=== PATIENT | female | born 1965 | race Caucasian/White ===

== ENCOUNTER 2018-01-23 14:25 | Inpatient (IN) | payer OTHER ==
--- NOTE | 2018-01-23 15:04 | PDOC ---
Rapid Medical Evaluation Chief Complaint: Pain, Acute Medical Evaluation: Allergies Allergy/AdvReac Type Severity Reaction Status Date / Time No Known Allergies Allergy Verified 01/23/18 14:53 Vital Signs Temp Pulse Resp BP Pulse Ox 98.6 F 106 H 19 134/73 100 01/23/18 14:53 01/23/18 14:53 01/23/18 14:53 01/23/18 14:53 01/23/18 14:53 01/23/18 14:59 Pt presents with RUQ pain since Monday. States that the pain radiates to the back. States that the pain is made worse by eating. Pt denies fevers, chills, constipation, diarrhea, vomiting Exam: (+) murphys sign. Abdomen soft Orders: Labs, Urine, US Pt to proceed to the ED for further evaluation Discharge Disposition - Diagnosis Abdominal pain - Referrals - Patient Instructions - Post Discharge Activity
[2018-01-23 15:40] LABS: BASO % 0.8 % (0-2.0); EOS % 7.3 % (0-4.5); HEMATOCRIT 37.8 % (32.4-45.2); LYMPH % 32.4 % (8-40); MCH 32.8 pg (25.7-33.7); MCHC 34.4 g/dl (32.0-36.0); MEAN CELL VOLUME 95.4 fl (80-96); MEAN PLT VOLUME 7.8 fl (7.5-11.1); MONO % 5.5 % (3.8-10.2); PLATELET COUNT 250 K/MM3 (134-434); RBC 3.97 M/mm3 (3.60-5.2); RDW 12.2 % (11.6-15.6); WHITE BLOOD COUNT 6.7 K/mm3 (4.0-10.0)
[2018-01-23 15:55] LABS: INR 1.15 (0.83-1.09)
[2018-01-23 16:11] LABS: ALK PHOS 71 U/L (45-117); ANION GAP 6 (8-16); BILIRUBIN,TOTAL 0.3 mg/dL (0.2-1.0); BLOOD UREA NITROGEN 13 mg/dL (7-18); CHLORIDE 107 mmol/L (98-107); CO2 28 mmol/L (21-32); GLUCOSE,RANDOM 103 mg/dL (74-106); POTASSIUM 3.8 mmol/L (3.5-5.1); SGOT/AST 44 U/L (15-37); SGPT/ALT 89 U/L (12-78); SODIUM 141 mmol/L (136-145); TOT PROT 7.7 g/dl (6.4-8.2)
[2018-01-23 16:12] LABS: LIPASE 150 U/L (73-393)
[2018-01-23 16:26] LABS: URINE APPEARANCE CLEAR; URINE BILIRUBIN NEGATIVE (<2.0 mg/dL); URINE COLOR STRAW; URINE GLUCOSE (UA) NEGATIVE (NEGATIVE); URINE KETONE NEGATIVE (NEGATIVE); URINE NITRITE NEGATIVE (NEGATIVE); URINE PROTEIN NEGATIVE (NEGATIVE); URINE UROBILINOGEN NEGATIVE mg/dL (0.2-1.0)
[2018-01-23 16:27] LABS: URINE LEUK ESTERASE 1+ (NEGATIVE)
--- NOTE | 2018-01-23 16:27 | PDOC ---
History of Present Illness - General Chief Complaint: Pain, Acute Stated Complaint: PAIN/ RT SIDE, HEAD Time Seen by Provider: 01/23/18 15:04 - History of Present Illness Initial Comments: This is a 52 YOF with 5-year h/o episodic RUQ pain, who p/w RUQ abdominal pain radiating straight back to her right back for the past 2-3 days, worse with eating. She had initial vomiting at the onset, but since the first day has been nauseated but without vomiting. She additionally notes mild chills. She denies fever, diarrhea, constipation, black/bloody stool, chest pain, SOB, palpitations , dysuria, vaginal bleeding/discharge, recent falls/injuries, dizziness, lightheadedness, LOC, or other symptoms. This pain feels the same as her prior RUQ pain episodes. She has been seen medically for this pain in the past, and has had labs, imaging, upper endoscopy, showing no evidence of gallstones or biliary pathology. Past History - Past Medical History Allergies/Adverse Reactions: Allergies Allergy/AdvReac Type Severity Reaction Status Date / Time No Known Allergies Allergy Verified 01/23/18 14:53 COPD: No Other medical history: DENIES. - Suicide/Smoking/Psychosocial Hx Smoking Status: No Smoking History: Never smoked Number of Cigarettes Smoked Daily: 0 Review of Systems - Review of Systems Able to Perform ROS?: Yes Constitutional: No: Chills, Fever, Unexplained wgt Loss HEENTM: No: Nose Congestion, Throat Pain Respiratory: No: Cough, Shortness of Breath Cardiac (ROS): No: Chest Pain, Palpitations ABD/GI: Yes: Other (abdominal pain). No: Constipated, Diarrhea, Nausea, Vomiting : No: Burning, Dysuria Musculoskeletal: No: Back Pain, Neck Pain Integumentary: No: Bruising, Rash Neurological: No: Headache, Numbness, Tingling, Weakness, Dizziness Endocrine: No: Unexplained Weight Gain, Unexplained Weight Loss *Physical Exam - Vital Signs Last Vital Signs Temp Pulse Resp BP Pulse Ox 98.6 F 106 H 19 134/73 100 01/23/18 14:53 01/23/18 14:53 01/23/18 14:53 01/23/18 14:53 01/23/18 14:53 - Physical Exam General Appearance: Yes: Nourished. No: Apparent Distress HEENT: positive: EOMI, Normal Voice, Hearing Grossly Normal. negative: Scleral Icterus (R), Scleral Icterus (L), Nasal Congestion Neck: positive: Trachea midline, Supple. negative: Tender, Rigid Respiratory/Chest: positive: Lungs Clear, Normal Breath Sounds. negative: Respiratory Distress, Crackles, Rhonchi, Stridor, Wheezing Cardiovascular: positive: Regular Rhythm, Regular Rate. negative: Murmur Gastrointestinal/Abdominal: positive: Normal Bowel Sounds, Soft. negative: Tender, Organomegaly, Pulsatile Mass, Guarding Musculoskeletal: positive: Normal Inspection. negative: Decreased Range of Motion, Vertebral Tenderness Extremity: positive: Normal Capillary Refill, Normal Inspection, Normal Range of Motion. negative: Tender, Cyanosis Integumentary: positive: Normal Color, Dry, Warm. negative: Erythema, Rash, Bruising Neurologic: positive: hand scraper II-XII NML intact, Fully Oriented, Alert, Normal Mood/ Affect, Normal Response, Motor Strength 5/5 ED Treatment Course - LABORATORY CBC & Chemistry Diagram: 01/23/18 15:35 01/23/18 15:35 - ADDITIONAL ORDERS Additional order review: Laboratory Results 01/23/18 01/23/18 15:35 15:35 PT with INR 13.00 INR 1.15 Sodium 141 Potassium 3.8 Chloride 107 Carbon Dioxide 28 Anion Gap 6 L BUN 13 Creatinine 1.0 Creat Clearance w eGFR 58.22 Random Glucose 103 Calcium 9.0 Total Bilirubin 0.3 AST 44 H ALT 89 H Alkaline Phosphatase 71 Total Protein 7.7 Albumin 4.0 01/23/18 15:35 RBC 3.97 MCV 95.4 MCHC 34.4 RDW 12.2 MPV 7.8 Neutrophils % 54.0 Lymphocytes % 32.4 Monocytes % 5.5 Eosinophils % 7.3 H D Basophils % 0.8 Medical Decision Making - Medical Decision Making Adult female Pt p/w RUQ abdominal pain. Initial Vital Signs Temp Pulse Resp BP Pulse Ox 98.6 F 106 H 19 134/73 100 01/23/18 14:53 01/23/18 14:53 01/23/18 14:53 01/23/18 14:53 01/23/18 14:53 Exam: As noted in Physical Exam section. DDX IBNLT: cholecystitis (calculous vs. acalculous), choledocholithiasis, cholangitis, pancreatitis, appendicitis, gastritis, PUD, colitis, diverticulitis wwo abscess or perforation, AAA/AD, ACS, renal colic, obstructive uropathy, UTI/pyelonephritis, hernia, SBO, mesenteric/bowel ischemia , bowel perforation, malignancy, ovarian torsion, ovarian cyst, ectopic , PID, TOA, cervicitis, endometritis, salpingitis, oophoritis, Jakob- Kalpesh-Dinesh syndrome, primary dysmenorrhea, endometriosis, fibroids, constipation, gas, musculoskeletal, etc. W/U ordered: CBCD CMP Lipase Troponin CK CKMB Coags UA UCx EKG CXR RUQ US TX ordered: [facility] EKG: Reviewed; results as noted in ECG Review section. CXR: US: Laboratory Tests 01/23/18 01/23/18 01/23/18 15:35 15:35 15:35 WBC 6.7 RBC 3.97 Hgb 13.0 Hct 37.8 MCV 95.4 MCH 32.8 MCHC 34.4 RDW 12.2 Plt Count 250 MPV 7.8 Absolute Neuts (auto) 3.6 Neutrophils % 54.0 Lymphocytes % 32.4 Monocytes % 5.5 Eosinophils % 7.3 H D Basophils % 0.8 Nucleated RBC % 0 PT with INR 13.00 INR 1.15 Sodium 141 Potassium 3.8 Chloride 107 Carbon Dioxide 28 Anion Gap 6 L BUN 13 Creatinine 1.0 Creat Clearance w eGFR 58.22 Random Glucose 103 Calcium 9.0 Total Bilirubin 0.3 AST 44 H ALT 89 H Alkaline Phosphatase 71 Creatine Kinase Troponin I Total Protein 7.7 Albumin 4.0 Lipase Urine Color Urine Appearance Urine pH Ur Specific [place] Urine Protein Urine Glucose (UA) Urine Ketones Urine Blood Urine Nitrite Urine Bilirubin Urine Urobilinogen Ur Leukocyte Esterase Urine WBC (Auto) Urine RBC (Auto) Ur Epithelial Cells 01/23/18 01/23/18 15:35 15:46 WBC RBC Hgb Hct MCV MCH MCHC RDW Plt Count MPV Absolute Neuts (auto) Neutrophils % Lymphocytes % Monocytes % Eosinophils % Basophils % Nucleated RBC % PT with INR INR Sodium Potassium Chloride Carbon Dioxide Anion Gap BUN Creatinine Creat Clearance w eGFR Random Glucose Calcium Total Bilirubin AST ALT Alkaline Phosphatase Creatine Kinase 62 Troponin I < 0.02 Total Protein Albumin Lipase 150 Urine Color Straw Urine Appearance Clear Urine pH 7.0 Ur Specific [place] 1.014 Urine Protein Negative Urine Glucose (UA) Negative Urine Ketones Negative Urine Blood Negative Urine Nitrite Negative Urine Bilirubin Negative Urine Urobilinogen Negative Ur Leukocyte Esterase 1+ H Urine WBC (Auto) 8 Urine RBC (Auto) 1 Ur Epithelial Cells Rare Reassessment: ADMIT The Pts symptoms persist despite ED treatments. The Pt is unsafe for discharge at this time. They require further hospital observation, workup, and treatment. Microblog sent to [facility] for admission. Spoke with admitting team car sales representative, in agreement Pt to be admitted to Dr. Silveira. Decision to Admit order placed to admitting team covering attending Dr. Silveira, Med/Surg IP. Consult orders placed to Dr. Culp for MRCP and Dr. Bass for surgical consultation. *DC/Admit/Observation/Transfer Diagnosis at time of Disposition: Abdominal pain Qualifiers: Abdominal location: right upper quadrant Qualified Code(s): R10.11 - Right upper quadrant pain Nausea and vomiting Qualifiers: Vomiting type: unspecified Vomiting Intractability: non-intractable Qualified Code(s): R11.2 - Nausea with vomiting, unspecified - Discharge Dispostion Condition at time of disposition: Guarded Decision to Admit order: Yes - Referrals - Patient Instructions Additional Instructions: You were seen in the ER for abdominal pain. We did an exam, labs, an ultrasound , and an electrocardiogram. After our assessment, we do not believe you are having a medical emergency at this time, and we believe you are safe to go home. Please follow up with your regular PCP in 1-3 days. Call their clinic, tell them you were seen in the ER, and tell them you need a follow-up. If you have any new or worsening symptoms, please come back to the ER at any time (24 hours a day). If you are having severe or life threatening symptoms, or symptoms that make it unsafe to drive or have someone drive you, please call 911. - Post Discharge Activity
[2018-01-23 16:40] LABS: EPI CELLS RARE /HPF (FEW)
--- NOTE | 2018-01-23 18:08 | PDOC ---
Attending Attestation - Resident Resident Name: Clare Sun - ED Attending Attestation I have performed the following: I have examined & evaluated the patient, The case was reviewed & discussed with the resident, I agree w/resident's findings & plan, Exceptions are as noted - HPI HPI: 01/23/18 18:02 52 year old female with PMH of chronic abdominal pain since last year presents with RUQ pain x 2 days. The patient reported that she developed a constant RUQ pain worsened with eating. She vomited once the first day but only had nausea since then. Denies fevers, chills, diarrhea. Reports worse appetite. The patient reported she has had this pain evaluated by her PMD, Dr. Erwin with RUQ ultrasound, CT scan of abdomen of pelvis, and endoscopy and colonoscopy , which was reportedly negative. Pt continues to have persistent RUQ pain so came into ED. - Physicial Exam PE: 01/23/18 18:56 GENERAL: Awake, alert, and fully oriented, in no acute distress HEAD: No signs of trauma EYES: EOMI, sclera anicteric, conjunctiva clear ENT: Auricles normal inspection, hearing grossly normal, nares patent,Moist mucosa NECK: Normal ROM, supple LUNGS: Breath sounds equal, clear to auscultation bilaterally. No wheezes, and no crackles HEART: Regular rate and rhythm, normal S1 and S2, no murmurs, rubs or gallops ABDOMEN: Soft, RUQ pain. No guarding, no rebound. No masses EXTREMITIES: Normal range of motion, no edema. No clubbing or cyanosis. No cords, erythema, or tenderness NEUROLOGICAL: Cranial nerves II through XII grossly intact. Normal speech, normal gait SKIN: Warm, Dry, normal turgor, no rashes or lesions noted. - Medical Decision Making 01/23/18 18:57 Vital Signs Temp Pulse Resp BP Pulse Ox 98.6 F 106 H 19 134/73 100 01/23/18 14:53 01/23/18 14:53 01/23/18 14:53 01/23/18 14:53 01/23/18 14:53 RUQ pain. Pt was evaluated with RUQ ultrasound. Demonstrates borderline thickened gallbladder wall but no gallstones. Also elevated CBD. Findings will likely require an MRCP and further evaluation. Surgery consult GI consult Admit
--- NOTE | 2018-01-23 18:23 | HP ---
Admitting History and Physical - Admission Chief Complaint: abdominal pain History of Present Illness: This is a 52 year old female with no pmhx who presented to the ED after RUQ pain since Monday. On Monday, pt had nausea and vomiting. Since then pain has worsened and nausea continued. She did have a colonoscopy/EGD and cat scan a year ago which was neg. Currently, denies chest pain, sob, sales, dizziness, lightheadedness. History Source: Patient Limitations to Obtaining History: No Limitations - Smoking History Smoking history: Never smoked Aproximately how many cigarettes per day: 0 - Alcohol/Substance Use Hx Alcohol Use: No History of Substance Use: reports: None - Social History ADL: Independent Home Medications - Allergies Allergies/Adverse Reactions: Allergies Allergy/AdvReac Type Severity Reaction Status Date / Time No Known Allergies Allergy Verified 01/23/18 14:53 - Home Medications Home Medications: Ambulatory Orders NK [No Known Home Medication] 01/23/18 Review of Systems - Review of Systems Constitutional: reports: No Symptoms Eyes: reports: No Symptoms HENT: reports: No Symptoms Neck: reports: No Symptoms Cardiovascular: reports: No Symptoms Respiratory: reports: No Symptoms Gastrointestinal: reports: Abdominal Pain, Nausea, Vomiting Genitourinary: reports: No Symptoms Musculoskeletal: reports: No Symptoms Integumentary: reports: No Symptoms Neurological: reports: No Symptoms Endocrine: reports: No Symptoms Hematology/Lymphatic: reports: No Symptoms Psychiatric: reports: No Symptoms Physical Examination Vital Signs: Vital Signs Temperature 98.6 F 01/23/18 14:53 Pulse Rate 106 H 01/23/18 14:53 Respiratory Rate 19 01/23/18 14:53 Blood Pressure 134/73 01/23/18 14:53 O2 Sat by Pulse Oximetry (%) 100 01/23/18 14:53 Constitutional: Yes: Well Nourished Eyes: Yes: Conjunctiva Clear HENT: Yes: Atraumatic Neck: Yes: Supple Cardiovascular: Yes: Regular Rate and Rhythm, S1, S2 Respiratory: Yes: Regular, CTA Bilaterally Gastrointestinal: Yes: Normal Bowel Sounds, Tenderness (RUQ tenderness referring to back to palpation) Renal/: Yes: WNL Musculoskeletal: Yes: WNL Extremities: Yes: WNL Edema: No Peripheral Pulses WNL: Yes Integumentary: Yes: WNL Neurological: Yes: Alert, Oriented, Cran Nerves II-XII Intact Labs: CBC, BMP 01/23/18 15:35 01/23/18 15:35 Imaging - Results Cat Scan: Report Reviewed (no definite cholelithiasis seen, GB mildly distended w borderline wall thickness ?acute leslie 0.3 cm GB polyp, common bile duct diameter slightly prominent, measure 0.7cm with apparent mild increase in diameter.) Assessment/Plan Assessment: 52 year old female admitted with RUQ pain Plan: 1. RUQ pain - r/o choledocohlithiaisis d/t biliary sludge - Monitor for acute cholecystitis, pancreatitis - Monitor LFTs - Check lipid panel - MRI/MRCP - NPO - Cont IVF - GI, Surgical consult 2. DVT - Heparin sq Visit type - Emergency Visit Emergency Visit: Yes ED Registration Date: 01/23/18 Care time: The patient presented to the Emergency Department on the above date and was hospitalized for further evaluation of their emergent condition. - New Patient This patient is new to me today: Yes Date on this admission: 01/24/18 - Critical Care Critical Care patient: No Hospitalist Screening - Colonoscopy Questionnaire Colonoscopy Questionnaire: Colonoscopy Questionnaire - Patient: 50 - 75 years old and never had a screening colonoscopy: Unknown History of colon or rectal polyps, or CA: Unknown History of IBD, Crohn's disease or UC: Unknown History of abdominal radiation therapy as a child: Unknown - Relative: 1 with colon or rectal CA, or polyps at age 60 or younger: Unknown Colon or rectal CA diagnosed at age 45 or younger: Unknown Multiple relatives with colon or rectal CA: Unknown - Outcome: Screening Result: Negative Screen
--- NOTE | 2018-01-23 18:40 | CONSULT ---
Consult Consult Specialty:: general surgery Reason for Consultation:: billiary dyskinesia? - History of Present Illness Chief Complaint: abdominal pain History of Present Illness: 52 yo female with no significnat PMH who presented to the ED after RUQ pain since Monday. On Monday, pt had nausea and vomiting. Since then pain has worsened and nausea continued. She did have a colonoscopy/EGD and cat scan a year ago which was neg. Currently, denies chest pain, sob, sales, dizziness, lightheadedness. We were asked assess. - History Source History Provided By: Patient, Medical Record Limitations to Obtaining History: No Limitations - Alcohol/Substance Use Hx Alcohol Use: No History of Substance Use: reports: None - Smoking History Smoking history: Never smoked Aproximately how many cigarettes per day: 0 - Social History ADL: Independent Home Medications - Allergies Allergies/Adverse Reactions: Allergies Allergy/AdvReac Type Severity Reaction Status Date / Time No Known Allergies Allergy Verified 01/23/18 14:53 - Home Medications Home Medications: Ambulatory Orders NK [No Known Home Medication] 01/23/18 Review of Systems - Review of Systems Constitutional: denies: Chills, Fever Eyes: denies: Blurred Vision, Recent Change in Vision HENT: denies: Difficult Swallowing, Throat Pain Neck: denies: Pain on Movement, Swollen Glands, Tenderness Cardiovascular: denies: Chest Pain, Palpitations Respiratory: denies: Cough Gastrointestinal: denies: Abdominal Pain Breasts: reports: No Symptoms Reported. denies: Pain Musculoskeletal: denies: Back Pain, Muscle Pain, Muscle Weakness Integumentary: denies: Eczema, Rash Neurological: denies: Seizure, Syncope Endocrine: denies: Unexplained Weight Gain, Unexplained Weight Loss Hematology/Lymphatic: denies: Easily Bruised, Excessive Bleeding Psychiatric: denies: Anxiety, Depression Physical Exam Vital Signs: Vital Signs Temperature 98.6 F 01/23/18 14:53 Pulse Rate 106 H 01/23/18 14:53 Respiratory Rate 19 01/23/18 14:53 Blood Pressure 134/73 01/23/18 14:53 O2 Sat by Pulse Oximetry (%) 100 01/23/18 14:53 Vital Signs Period Temp Pulse Resp BP Sys/Iqbal Pulse Ox Last 24 Hr 98.0 F-98.3 F 79-100 -18 96-125/43-77 98-100 Constitutional: Yes: Well Nourished, No Distress, Calm Eyes: Yes: Conjunctiva Clear, EOM Intact HENT: Yes: Atraumatic, Normocephalic Neck: Yes: Supple, Trachea Midline Cardiovascular: Yes: Regular Rate and Rhythm, S1, S2 Respiratory: Yes: Regular, CTA Bilaterally Gastrointestinal: Yes: Normal Bowel Sounds, Soft, Tenderness. No: Tenderness, Epigastrium, Tenderness, Rebound (RUQ and right flank) ...Rectal Exam: Yes: Deferred Renal/: No: CVA Tenderness - Left, CVA Tenderness - Right Extremities: No: Cool, Cyanosis Edema: No Peripheral Pulses WNL: Yes Integumentary: No: Incision, Jaundice, Rash Neurological: Yes: Alert, Oriented Psychiatric: Yes: Alert, Oriented Labs: CBC, BMP 01/23/18 15:35 01/23/18 15:35 Imaging - Results Ultrasound: Report Reviewed, Image Reviewed MRI: Report Reviewed, Image Reviewed Problem List - Problems (1) Dyskinesia of gallbladder Assessment/Plan: 52yo female with Billiary dyskinesia and RUQ pain that is intractable for 5 years, CBD 0.7 no clear choledocholithiasis NPO and IVF hydration IV antibitics MRCP possible cholecystetcomy this admission Thank you for the opportunity to participate in the care of this patient. Code(s): K82.8 - OTHER SPECIFIED DISEASES OF GALLBLADDER (2) Abdominal pain Code(s): R10.9 - UNSPECIFIED ABDOMINAL PAIN Qualifiers: Abdominal location: right upper quadrant Qualified Code(s): R10.11 - Right upper quadrant pain (3) Dilated cbd, acquired Code(s): K83.8 - OTHER SPECIFIED DISEASES OF BILIARY TRACT (4) Gallbladder polyp Code(s): K82.4 - CHOLESTEROLOSIS OF GALLBLADDER (5) Nausea and vomiting Code(s): R11.2 - NAUSEA WITH VOMITING, UNSPECIFIED Qualifiers: Vomiting type: unspecified Vomiting Intractability: non-intractable Qualified Code(s): R11.2 - Nausea with vomiting, unspecified (6) RUQ abdominal tenderness Code(s): R10.811 - RIGHT UPPER QUADRANT ABDOMINAL TENDERNESS
[2018-01-23 19:27] VITALS: BMI 21.2
[2018-01-23] MEDS ORDERED: MORPHINE SULFATE 2 MG/ML VIAL IVPUSH PRN (22:01)
[2018-01-23] MEDS ORDERED: ONDANSETRON 4 MG/2 ML VIAL IVPUSH PRN (22:03)
[2018-01-23] MEDS: HEPARIN NA (PORCINE) 5,000 UNITS/ML 1ML VIAL SQ SCH (23:18)
[2018-01-23] MEDS: SODIUM CHLORIDE 1,000 ML IV SCH (23:18)
[2018-01-24] MEDS: HEPARIN NA (PORCINE) 5,000 UNITS/ML 1ML VIAL SQ SCH ×3 (05:01→22:05)
[2018-01-24 07:00] LABS: BASO % 1.2 % (0-2.0); EOS % 8.5 % (0-4.5); HEMATOCRIT 33.3 % (32.4-45.2); HEMOGLOBIN 11.5 GM/dL (10.7-15.3); LYMPH % 38.5 % (8-40); MCH 32.9 pg (25.7-33.7); MCHC 34.7 g/dl (32.0-36.0); MEAN CELL VOLUME 94.9 fl (80-96); MEAN PLT VOLUME 8.1 fl (7.5-11.1); MONO % 8.6 % (3.8-10.2); NEUT % 43.2 % (42.8-82.8); PLATELET COUNT 195 K/MM3 (134-434); RBC 3.51 M/mm3 (3.60-5.2); RDW 12.3 % (11.6-15.6); WHITE BLOOD COUNT 5.3 K/mm3 (4.0-10.0)
[2018-01-24 07:32] LABS: CHLORIDE 111 mmol/L (98-107); POTASSIUM 3.9 mmol/L (3.5-5.1); SODIUM 145 mmol/L (136-145)
[2018-01-24 07:51] LABS: ALBUMIN 3.3 g/dl (3.4-5.0); ALK PHOS 61 U/L (45-117); ANION GAP 7 (8-16); BILIRUBIN,TOTAL 0.8 mg/dL (0.2-1.0); BLOOD UREA NITROGEN 10 mg/dL (7-18); CALCIUM 8.5 mg/dL (8.5-10.1); CO2 27 mmol/L (21-32); CREATININE 0.8 mg/dL (0.55-1.02); GLUCOSE,RANDOM 78 mg/dL (74-106); LIPASE 100 U/L (73-393); PHOSPHOROUS 3.5 mg/dL (2.5-4.9); SGOT/AST 30 U/L (15-37); SGPT/ALT 68 U/L (12-78); TOT PROT 6.5 g/dl (6.4-8.2)
[2018-01-24] MEDS: PANTOPRAZOLE SODIUM 40 MG VIAL IVPUSH SCH (09:51)
--- NOTE | 2018-01-24 11:21 | EKG ---
Test Reason : Blood Pressure : / mmHG Vent. Rate : 089 BPM Atrial Rate : 089 BPM P-R Int : 152 ms QRS Dur : 076 ms QT Int : 372 ms P-R-T Axes : 073 053 067 degrees QTc Int : 452 ms NORMAL SINUS RHYTHM WITH SINUS ARRHYTHMIA BIATRIAL ENLARGEMENT ABNORMAL ECG NO PREVIOUS ECGS AVAILABLE Confirmed by MARYAM MAY MD ([id number]) on 01/24/2018 11:21:24 AM Referred By: Confirmed By:MARYAM MAY MD
--- NOTE | 2018-01-24 12:02 | CON.GI ---
Consult Consult Specialty:: gi Reason for Consultation:: RUQ pain, nausea, vomiting x 3 days - History of Present Illness History of Present Illness: Chart reviewed. PEr initial intake: 52 year old female with PMH of chronic abdominal pain since last year presents with RUQ pain x 2 days. The patient reported that she developed a constant RUQ pain worsened with eating. She vomited once the first day but only had nausea since then. Denies fevers, chills, diarrhea. Reports worse appetite. The patient reported she has had this pain evaluated by her PMD , Dr. Erwin with RUQ ultrasound, CT scan of abdomen of pelvis, and endoscopy and colonoscopy within last year, which were reportedly negative. Pt continues to have persistent RUQ pain so came into ED. US of the liver and chest x ray reviewed. 3mm GB polyp, Thikened GB wall, CBD diameter is 2 mm larger than expected. Normal lipase, ALP, bilirubin. 2x ALT and AST. Normal CMP. The pt corroborated the above history. Deneis trauma to RUQ. Denies fever, chills, hematemesis, dysphagia, odynophagia, jaundice, abdominal pain, altered bowels, pencil-thin, or ribbon-like stools. Denies melena, hematochezia, weight loss. At the time of this encounter, the pt appers comfortable, no longer in pain, or nauseous. - History Source History Provided By: Patient, Medical Record - Past Medical History ...: No - Alcohol/Substance Use Hx Alcohol Use: No History of Substance Use: reports: None - Smoking History Smoking history: Never smoked Have you smoked in the past 12 months: No Aproximately how many cigarettes per day: 0 - Social History ADL: Independent Home Medications - Allergies Allergies/Adverse Reactions: Allergies Allergy/AdvReac Type Severity Reaction Status Date / Time No Known Allergies Allergy Verified 01/23/18 14:53 - Home Medications Home Medications: Ambulatory Orders NK [No Known Home Medication] 01/23/18 Family Disease History - Family Disease History Family History: Unremarkable Review of Systems Findings/Remarks: as per HPI, H&P, ED Physical Exam-GI Vital Signs: Vital Signs Temperature 98.3 F 01/24/18 10:00 Pulse Rate 79 01/24/18 10:00 Respiratory Rate 18 01/24/18 10:00 Blood Pressure 117/60 01/24/18 10:00 O2 Sat by Pulse Oximetry (%) 98 01/23/18 21:00 Constitutional: Yes: Well Nourished Eyes: Yes: Conjunctiva Clear HENT: Yes: Atraumatic Neck: Yes: Supple Cardiovascular: Yes: Regular Rate and Rhythm Respiratory: Yes: Regular, Other (RL anterior chest wall tenderness on palpation , no skin discoloration.) Gastrointestinal Inspection: No: Distention ...Auscultate: Yes: Normoactive Bowel Sounds ...Palpate: Yes: Soft. No: Firm/Rigid, Guarding, Mass, Tenderness, Tenderness, Epigastium, Tenderness, Rebound Neurological: Yes: Alert, Oriented Labs: CBC, BMP 01/24/18 05:50 01/24/18 05:50 INR, PTT INR 1.15 (0.83-1.09) 01/23/18 15:35 Laboratory Last Values WBC 5.3 K/mm3 (4.0-10.0) 01/24/18 05:50 RBC 3.51 M/mm3 (3.60-5.2) L 01/24/18 05:50 Hgb 11.5 GM/dL (10.7-15.3) 01/24/18 05:50 Hct 33.3 % (32.4-45.2) 01/24/18 05:50 MCV 94.9 fl (80-96) 01/24/18 05:50 MCH 32.9 pg (25.7-33.7) 01/24/18 05:50 MCHC 34.7 g/dl (32.0-36.0) 01/24/18 05:50 RDW 12.3 % (11.6-15.6) 01/24/18 05:50 Plt Count 195 K/MM3 (134-434) D 01/24/18 05:50 MPV 8.1 fl (7.5-11.1) 01/24/18 05:50 Absolute Neuts (auto) 2.3 # 01/24/18 05:50 Neutrophils % 43.2 % (42.8-82.8) 01/24/18 05:50 Lymphocytes % 38.5 % (8-40) 01/24/18 05:50 Monocytes % 8.6 % (3.8-10.2) 01/24/18 05:50 Eosinophils % 8.5 % (0-4.5) H 01/24/18 05:50 Basophils % 1.2 % (0-2.0) 01/24/18 05:50 Nucleated RBC % 0 % (0-0) 01/24/18 05:50 PT with INR 13.00 SEC (9.7-13.0) 01/23/18 15:35 INR 1.15 (0.83-1.09) 01/23/18 15:35 Sodium 145 mmol/L (136-145) 01/24/18 05:50 Potassium 3.9 mmol/L (3.5-5.1) 01/24/18 05:50 Chloride 111 mmol/L (98-107) H 01/24/18 05:50 Carbon Dioxide 27 mmol/L (21-32) 01/24/18 05:50 Anion Gap 7 (8-16) L 01/24/18 05:50 BUN 10 mg/dL (7-18) 01/24/18 05:50 Creatinine 0.8 mg/dL (0.55-1.02) 01/24/18 05:50 Creat Clearance w eGFR > 60 (>60) 01/24/18 05:50 Random Glucose 78 mg/dL (74-106) 01/24/18 05:50 Calcium 8.5 mg/dL (8.5-10.1) 01/24/18 05:50 Phosphorus 3.5 mg/dL (2.5-4.9) 01/24/18 05:50 Magnesium 2.0 mg/dL (1.8-2.4) 01/24/18 05:50 Total Bilirubin 0.8 mg/dL (0.2-1.0) 01/24/18 05:50 AST 30 U/L (15-37) 01/24/18 05:50 ALT 68 U/L (12-78) 01/24/18 05:50 Alkaline Phosphatase 61 U/L (45-117) D 01/24/18 05:50 Creatine Kinase 62 IU/L (26-192) 01/23/18 15:35 Troponin I < 0.02 ng/ml (0.00-0.05) 01/23/18 15:35 Total Protein 6.5 g/dl (6.4-8.2) 01/24/18 05:50 Albumin 3.3 g/dl (3.4-5.0) L 01/24/18 05:50 Lipase 100 U/L (73-393) 01/24/18 05:50 Urine Color Straw 01/23/18 15:46 Urine Appearance Clear 01/23/18 15:46 Urine pH 7.0 (5.0-8.0) 01/23/18 15:46 Ur Specific [place] 1.014 (1.001-1.035) 01/23/18 15:46 Urine Protein Negative (NEGATIVE) 01/23/18 15:46 Urine Glucose (UA) Negative (NEGATIVE) 01/23/18 15:46 Urine Ketones Negative (NEGATIVE) 01/23/18 15:46 Urine Blood Negative (NEGATIVE) 01/23/18 15:46 Urine Nitrite Negative (NEGATIVE) 01/23/18 15:46 Urine Bilirubin Negative (<2.0 mg/dL) 01/23/18 15:46 Urine Urobilinogen Negative mg/dL (0.2-1.0) 01/23/18 15:46 Ur Leukocyte Esterase 1+ (NEGATIVE) H 01/23/18 15:46 Urine WBC (Auto) 8 /hpf (3-5) 01/23/18 15:46 Urine RBC (Auto) 1 /hpf (0-3) 01/23/18 15:46 Ur Epithelial Cells Rare /HPF (FEW) 01/23/18 15:46 Imaging - Results X-ray: Report Reviewed Ultrasound: Report Reviewed Problem List - Problems (1) RUQ abdominal tenderness Code(s): R10.811 - RIGHT UPPER QUADRANT ABDOMINAL TENDERNESS (2) RUQ abdominal pain Code(s): R10.11 - RIGHT UPPER QUADRANT PAIN (3) Gallbladder polyp Code(s): K82.4 - CHOLESTEROLOSIS OF GALLBLADDER (4) Dilated cbd, acquired Code(s): K83.8 - OTHER SPECIFIED DISEASES OF BILIARY TRACT Assessment/Plan A 52F with RUQ pain, nausea and vomiting on Monday. ALT and AST x 2 normal on admission, but have normalized 1 day later. Normal lipase. No signs of cholestasis based on blood work results. CBD 2 mm larger than expected w/o intraluminal defects, per US. Also, lower right anterior rib cage tenderness with normal CXR and no recent history of trauma to that area. Unclear etiology of the symptoms. ?Passed gallstone, ?cholecystitis, ? cholelithiasis, GB dysfunction. Agree with full liquid diet, MRI/MRCP, and Sx evaluation. Doubt Upper GI inflammatory states, PUD. r/o chostochondritis.
--- NOTE | 2018-01-24 12:05 | PN ---
Physical Exam: SUBJECTIVE: Patient seen and examined. States she is feeling better, no over tenderness, no vomiting. OBJECTIVE: Vital Signs Period Temp Pulse Resp BP Sys/Iqbal Pulse Ox Last 24 Hr 98.1 F-98.8 F 70-106 18-70 95-134/56-76 98-100 PE Neuro: alert, awake, cn 2-12intact Pulm: CTAB CV: s1 s2 rrr no mrg Abd: no RUQ tenderness, no vomiting, soft Ext: no le edema Laboratory Results - last 24 hr 01/23/18 01/23/18 01/23/18 15:35 15:35 15:35 WBC 6.7 RBC 3.97 Hgb 13.0 Hct 37.8 MCV 95.4 MCH 32.8 MCHC 34.4 RDW 12.2 Plt Count 250 MPV 7.8 Absolute Neuts (auto) 3.6 Neutrophils % 54.0 Lymphocytes % 32.4 Monocytes % 5.5 Eosinophils % 7.3 H D Basophils % 0.8 Nucleated RBC % 0 PT with INR 13.00 INR 1.15 Sodium 141 Potassium 3.8 Chloride 107 Carbon Dioxide 28 Anion Gap 6 L BUN 13 Creatinine 1.0 Creat Clearance w eGFR 58.22 Random Glucose 103 Calcium 9.0 Phosphorus Magnesium Total Bilirubin 0.3 AST 44 H ALT 89 H Alkaline Phosphatase 71 Creatine Kinase Troponin I Total Protein 7.7 Albumin 4.0 Lipase Urine Color Urine Appearance Urine pH Ur Specific [place] Urine Protein Urine Glucose (UA) Urine Ketones Urine Blood Urine Nitrite Urine Bilirubin Urine Urobilinogen Ur Leukocyte Esterase Urine WBC (Auto) Urine RBC (Auto) Ur Epithelial Cells 01/23/18 01/23/18 01/24/18 15:35 15:46 05:50 WBC 5.3 RBC 3.51 L Hgb 11.5 Hct 33.3 MCV 94.9 MCH 32.9 MCHC 34.7 RDW 12.3 Plt Count 195 D MPV 8.1 Absolute Neuts (auto) 2.3 Neutrophils % 43.2 Lymphocytes % 38.5 Monocytes % 8.6 Eosinophils % 8.5 H Basophils % 1.2 Nucleated RBC % 0 PT with INR INR Sodium Potassium Chloride Carbon Dioxide Anion Gap BUN Creatinine Creat Clearance w eGFR Random Glucose Calcium Phosphorus Magnesium Total Bilirubin AST ALT Alkaline Phosphatase Creatine Kinase 62 Troponin I < 0.02 Total Protein Albumin Lipase 150 Urine Color Straw Urine Appearance Clear Urine pH 7.0 Ur Specific [place] 1.014 Urine Protein Negative Urine Glucose (UA) Negative Urine Ketones Negative Urine Blood Negative Urine Nitrite Negative Urine Bilirubin Negative Urine Urobilinogen Negative Ur Leukocyte Esterase 1+ H Urine WBC (Auto) 8 Urine RBC (Auto) 1 Ur Epithelial Cells Rare 01/24/18 05:50 WBC RBC Hgb Hct MCV MCH MCHC RDW Plt Count MPV Absolute Neuts (auto) Neutrophils % Lymphocytes % Monocytes % Eosinophils % Basophils % Nucleated RBC % PT with INR INR Sodium 145 Potassium 3.9 Chloride 111 H Carbon Dioxide 27 Anion Gap 7 L BUN 10 Creatinine 0.8 Creat Clearance w eGFR > 60 Random Glucose 78 Calcium 8.5 Phosphorus 3.5 Magnesium 2.0 Total Bilirubin 0.8 AST 30 ALT 68 Alkaline Phosphatase 61 D Creatine Kinase Troponin I Total Protein 6.5 Albumin 3.3 L Lipase 100 Urine Color Urine Appearance Urine pH Ur Specific [place] Urine Protein Urine Glucose (UA) Urine Ketones Urine Blood Urine Nitrite Urine Bilirubin Urine Urobilinogen Ur Leukocyte Esterase Urine WBC (Auto) Urine RBC (Auto) Ur Epithelial Cells Active Medications Generic Name Dose Route Start Last Admin Trade Name Freq PRN Reason Stop Dose Admin Heparin Sodium (Porcine) 5,000 unit 01/23/18 22:15 01/24/18 05:01 Heparin - SQ Not Given TID JAMARI Sodium Chloride 1,000 mls @ 100 mls/hr 01/23/18 22:15 01/23/18 23:18 Normal Saline - IV 100 mls/hr ASDIR JAMARI Administration Morphine Sulfate 1 mg 01/23/18 22:01 01/23/18 23:17 Morphine Sulfate IVPUSH 1 mg Q4H PRN Administration PAIN LEVEL 4 - 6 Ondansetron HCl 4 mg 01/23/18 22:03 Zofran Injection IVPUSH Q6H PRN NAUSEA Pantoprazole Sodium 40 mg 01/24/18 10:00 01/24/18 09:51 Protonix Iv IVPUSH 40 mg DAILY JAMARI Administration Assessment: 52 year old female admitted with RUQ pain Plan: 1. RUQ pain - r/o choledocohlithiaisis d/t biliary sludge - MRI/MRCP ordered, following results, start po diet, if negative can follow up as outpt with GI - LFT's wnl - Cont IVF 2. DVT - Heparin sq Visit type - Emergency Visit Emergency Visit: Yes ED Registration Date: 01/23/18 Care time: The patient presented to the Emergency Department on the above date and was hospitalized for further evaluation of their emergent condition. - New Patient This patient is new to me today: No - Critical Care Critical Care patient: No
[2018-01-24] MEDS ORDERED: LORATADINE 10 MG TABLET PO ONE (14:15)
--- NOTE | 2018-01-24 22:24 | PN ---
Progress Note, Physician Chief Complaint: abdominal pain History of Present Illness: 52 yo female with no significnat PMH who presented to the ED after RUQ pain since Monday. On Monday, pt had nausea and vomiting. Since then pain has worsened and nausea continued. MRI was negative for choledocholithasis - Current Medication List Current Medications: Active Medications Heparin Sodium (Porcine) (Heparin -) 5,000 unit SQ TID REPLACED BY [facility] Last Admin: 01/24/18 22:05 Dose: Not Given Sodium Chloride (Normal Saline -) 1,000 mls @ 100 mls/hr IV ASDIR REPLACED BY [facility] Last Admin: 01/23/18 23:18 Dose: 100 mls/hr Morphine Sulfate (Morphine Sulfate) 1 mg IVPUSH Q4H PRN PRN Reason: PAIN LEVEL 4 - 6 Last Admin: 01/23/18 23:17 Dose: 1 mg Ondansetron HCl (Zofran Injection) 4 mg IVPUSH Q6H PRN PRN Reason: NAUSEA Pantoprazole Sodium (Protonix Iv) 40 mg IVPUSH DAILY REPLACED BY [facility] Last Admin: 01/24/18 09:51 Dose: 40 mg - Objective Vital Signs: Vital Signs Temperature 98.1 F 01/24/18 14:13 Pulse Rate 96 H 01/24/18 14:13 Respiratory Rate 18 01/24/18 14:13 Blood Pressure 125/77 01/24/18 14:13 O2 Sat by Pulse Oximetry (%) 98 01/24/18 09:00 Vital Signs Period Temp Pulse Resp BP Sys/Iqbal Pulse Ox Last 24 Hr 98.1 F-98.8 F 70-96 18-70 95-125/56-77 98 Constitutional: Yes: Well Nourished, No Distress, Calm Eyes: Yes: Conjunctiva Clear, EOM Intact HENT: Yes: Atraumatic, Normocephalic Neck: Yes: Supple, Trachea Midline Cardiovascular: Yes: Regular Rate and Rhythm, S1, S2 Respiratory: Yes: Regular, CTA Bilaterally Gastrointestinal: Yes: Normal Bowel Sounds, Soft, Tenderness (RUQ) ...Rectal Exam: Yes: Deferred Genitourinary: No: CVA Tenderness - Left, CVA Tenderness - Right Extremities: No: Cool, Cyanosis Edema: No Peripheral Pulses WNL: Yes Peripheral Pulses: Left Doralis Pedis: 2+, Right Dorsalis Pedis: 2+ Integumentary: No: Incision, Jaundice Neurological: Yes: Alert, Oriented Psychiatric: Yes: Alert, Oriented Labs: CBC, BMP 01/24/18 05:50 01/24/18 05:50 INR, PTT INR 1.15 (0.83-1.09) 01/23/18 15:35 Problem List - Problems (1) Dyskinesia of gallbladder Assessment/Plan: 52yo female with Billiary dyskinesia and RUQ pain that is intractable for 5 years, CBD 0.7 no clear choledocholithiasis NPO and IVF hydration IV antibitics Discussed with patient risks, benefits and alternatives of laparoscopic possible open cholecystectomy, including but not limited to bleeding, infection , injury to adjacent structures, leak or injury, need for further procedures, ; alternatives include antibiotics, delayed or no surgery - risks of this include failure of nonoperative therapy, perforation, sepsis, recurrence, . Patient desires to proceed with operation - will take to OR for above. Informed consent signed for same. Discussed with patient risks, benefits and alternatives of laparoscopic possible open ectomy, including but not limited to bleeding, infection, injury to adjacent structures, leak or injury, intraabdominal abscess, need for further procedures, ; alternatives include antibiotics, delayed or no surgery - risks of this include failure of nonoperative therapy, perforation, sepsis, recurrence, . Patient desires to proceed with operation - will take to OR for above. Informed consent signed for same. Code(s): K82.8 - OTHER SPECIFIED DISEASES OF GALLBLADDER (2) Dilated cbd, acquired Code(s): K83.8 - OTHER SPECIFIED DISEASES OF BILIARY TRACT (3) Nausea and vomiting Code(s): R11.2 - NAUSEA WITH VOMITING, UNSPECIFIED Qualifiers: Vomiting type: unspecified Vomiting Intractability: non-intractable Qualified Code(s): R11.2 - Nausea with vomiting, unspecified (4) RUQ abdominal tenderness Code(s): R10.811 - RIGHT UPPER QUADRANT ABDOMINAL TENDERNESS Qualifiers: Presence of rebound: present Qualified Code(s): R10.821 - Right upper quadrant rebound abdominal tenderness
[2018-01-25] MEDS: HEPARIN NA (PORCINE) 5,000 UNITS/ML 1ML VIAL SQ SCH (05:01)
[2018-01-25] MEDS: SODIUM CHLORIDE 1,000 ML IV SCH ×2 (05:11→18:50)
[2018-01-25] MEDS: PANTOPRAZOLE SODIUM 40 MG VIAL IVPUSH SCH (10:19)
--- NOTE | 2018-01-25 12:18 | PN ---
Physical Exam: SUBJECTIVE: Patient seen and examined OBJECTIVE: Vital Signs Period Temp Pulse Resp BP Sys/Iqbal Pulse Ox Last 24 Hr 98.0 F-98.3 F 94-100 18-18 96-125/43-77 100 GENERAL: The patient is awake, alert, and fully oriented, in no acute distress. HEAD: Normal with no signs of trauma. EYES: PERRL, extraocular movements intact, sclera anicteric, conjunctiva clear. No ptosis. ENT: Ears normal, nares patent, oropharynx clear without exudates, moist mucous membranes. NECK: Trachea midline, full range of motion, supple. LUNGS: Breath sounds equal, clear to auscultation bilaterally, no wheezes, no crackles, no accessory muscle use. HEART: Regular rate and rhythm, S1, S2 without murmur, rub or gallop. ABDOMEN: Soft, nontender, nondistended, normoactive bowel sounds, no guarding, no rebound, no hepatosplenomegaly, no masses. EXTREMITIES: 2+ pulses, warm, well-perfused, no edema. NEUROLOGICAL: Cranial nerves II through XII grossly intact. Normal speech, gait not observed. PSYCH: Normal mood, normal affect. SKIN: Warm, dry, normal turgor, no rashes or lesions noted Active Medications Generic Name Dose Route Start Last Admin Trade Name Freq PRN Reason Stop Dose Admin Heparin Sodium (Porcine) 5,000 unit 01/23/18 22:15 01/25/18 05:01 Heparin - SQ Not Given TID JAMARI Sodium Chloride 1,000 mls @ 100 mls/hr 01/23/18 22:15 01/25/18 05:11 Normal Saline - IV 100 mls/hr ASDIR JAMARI Administration Morphine Sulfate 1 mg 01/23/18 22:01 01/23/18 23:17 Morphine Sulfate IVPUSH 1 mg Q4H PRN Administration PAIN LEVEL 4 - 6 Ondansetron HCl 4 mg 01/23/18 22:03 Zofran Injection IVPUSH Q6H PRN NAUSEA Pantoprazole Sodium 40 mg 01/24/18 10:00 01/25/18 10:19 Protonix Iv IVPUSH 40 mg DAILY JAMARI Administration ASSESSMENT/PLAN 52 year-old female with no significant PMH admitted for abdominal pain. Biliary dyskinesia Cholecystitis --has had intractable pain x 5 years; worse with eating; associated nausea and vomiting --01/23 MRCP shows distended gallbladder with wall thickening and edema; sludge fills the gallbladder; CBD normal, no intrahepatic duct dilitation --to OR today for planned lap leslie FEN Fluids: NS @ 100mL/hr Electrolytes: replete as indicated Nutrition: NPO DVT prophylaxis: hold subq heparin for procedure Physical therapy Dispo: continues to require inpatient care. Full code. Visit type - Emergency Visit Emergency Visit: Yes ED Registration Date: 01/23/18 Care time: The patient presented to the Emergency Department on the above date and was hospitalized for further evaluation of their emergent condition. - New Patient This patient is new to me today: Yes Date on this admission: 01/25/18 - Critical Care Critical Care patient: No
[2018-01-25 13:55] LABS: URINE APPEARANCE CLEAR; URINE BILIRUBIN NEGATIVE (<2.0 mg/dL); URINE COLOR STRAW; URINE GLUCOSE (UA) NEGATIVE (NEGATIVE); URINE KETONE 2+ (NEGATIVE); URINE LEUK ESTERASE TRACE (NEGATIVE); URINE NITRITE NEGATIVE (NEGATIVE); URINE PROTEIN NEGATIVE (NEGATIVE); URINE UROBILINOGEN NEGATIVE mg/dL (0.2-1.0)
[2018-01-25 14:03] LABS: EPI CELLS FEW /HPF (FEW); URINE MUCUS RARE
[2018-01-25] MEDS ORDERED: MIDAZOLAM HCL 2 MG/2 ML SINGLE DOSE VIAL ONE (16:00)
[2018-01-25] MEDS ORDERED: ROCURONIUM BROMIDE 50 MG/5 ML VIAL ONE (16:12)
[2018-01-25] MEDS ORDERED: SUCCINYLCHOLINE CHLORIDE 200 MG/10 ML VIAL ONE ×2 (16:12→16:15)
[2018-01-25] MEDS ORDERED: DEXAMETHASONE SOD PHOSPHATE 4 MG/1 ML VIAL ONE (16:13)
[2018-01-25] MEDS ORDERED: NEOSTIGMINE METHYLSULFATE 0.5 MG/ML - 10 ML MDV ONE (16:38)
[2018-01-25] MEDS ORDERED: GLYCOPYRROLATE 0.2 MG/1 ML VIAL ONE ×2 (16:38)
[2018-01-25] MEDS ORDERED: BUPIVACAINE HCL/PF 0.5% (5MG/ML) 10 ML VIAL ONE (17:00)
[2018-01-25] MEDS ORDERED: BENZOIN/ALOE VERA/STORAX/TOLU 58 ML BOTTLE ONE (17:07)
[2018-01-25] MEDS ORDERED: BUPIVACAINE HCL/PF 0.5% (5MG/ML) 10 ML VIAL IJ ONE (17:12)
[2018-01-25] MEDS ORDERED: PROMETHAZINE HCL 25 MG/1 ML VIAL IVPB PRN (17:25)
[2018-01-25] MEDS ORDERED: ONDANSETRON 4 MG/2 ML VIAL IVPUSH PRN ×2 (17:25→18:01)
[2018-01-25] MEDS ORDERED: LACTATED RINGERS SOLUTION 1,000 ML IV SCH (17:30)
[2018-01-25] MEDS ORDERED: IBUPROFEN 600 MG TABLET (FP) PO PRN ×2 (17:39→18:01)
[2018-01-25] MEDS ORDERED: ACETAMINOPHEN 325 MG TABLET (FP) PO PRN ×2 (17:39→18:01)
[2018-01-25] MEDS ORDERED: morphine SULFATE 4 MG/ML VIAL IVPUSH PRN ×2 (17:40→18:01)
[2018-01-25] MEDS ORDERED: PIPERACILLIN/TAZOB 3.375 GM 3.375 GM in DEXTROSE 5%-WATER - 50 ML IVPB ONE ×2 (17:45→18:15)
--- NOTE | 2018-01-25 17:48 | OP ---
Operative Note - Note: Operative Date: 01/25/18 Pre-Operative Diagnosis: acute cholecystitis Operation: Laparoscopic cholecystetomy Findings: distended and edematous gallbladder Post-Operative Diagnosis: Same as Pre-op Surgeon: Christopher Bass [employer] Interviewer: Caio Katz Anesthesiologist/CARPET OR RUG LAYER HELPER: Raoul Nguyen Anesthesia: General, Local (Marcaine 0.5%) Specimens Removed: gallbladder Estimated Blood Loss (mls): 5 Fluid Volume Replaced (mls): 1,000 (crystalloid)
--- NOTE | 2018-01-25 21:25 | OP ---
DATE OF OPERATION: 01/25/2018 PREOPERATIVE DIAGNOSIS: Acute cholecystitis. POSTOPERATIVE DIAGNOSIS: Acute cholecystitis. PROCEDURE: Laparoscopic cholecystectomy. ATTENDING SURGEON: Christopher Bass MD DEVELOPMENT COORDINATOR: Caio Katz MD ANESTHESIOLOGIST: Raoul Nguyen MD ANESTHESIA TYPE: General with local. Local consisted of 0.5% Marcaine, a total of 20 mL given in area block fashion at the port sites. ESTIMATED BLOOD LOSS: 5 mL. IV FLUID ADMINISTERED: 1 L of crystalloid. SPECIMEN: Gallbladder. BRIEF FINDINGS: Patient had a distended, edematous gallbladder. Critical view identified. All counts were correct at conclusion of surgery. INDICATION: The patient is a 52-year-old female, presenting with right upper quadrant pain chronically for 5 years, biliary colic associated with meal time. She was evaluated with MR, noted to have changes consistent with acute cholecystitis, without choledocholithiasis despite slightly dilated CBD on ultrasound measuring 0.7 cm. She was counseled regarding risks, benefits, alternatives to surgical cholecystectomy, signed informed consent, was taken for the procedure. PROCEDURE: The patient was brought to the operating room, placed in supine position on the operating table with the right arm extended at 90 degrees perpendicular to the body's axis, and the left arm tucked. The anterior abdominal wall was prepped and draped into a standard surgical field. Lower extremity SCDs placed to compression. Patient received intravenous antibiotics. Patient was induced with general anesthesia, endotracheally intubated. After a formal timeout, identifying the operative site and procedure, with all parties in agreement, we began with a supraumbilical approach. A 15 blade was used to incise a scribed incision. The incision was deepened and widened with Bovie cautery to the midline fascia of the rectus muscle. This fascia was elevated and entered bluntly into the abdomen, cleared with the digit. There appeared to be no adhesions. A [id number] was laid in with 0 Vicryl to allow for ablation of the port site at the conclusion of the case. A 12-mm Donato trocar was then installed into the abdomen and pneumoperitoneum was established to 15 mmHg. After establishing the pneumoperitoneum, the entry site was inspected, appeared to be atraumatic. We then inspected the gallbladder, which appeared to be distended and edematous at the hepatic margin. Additional trocar sites were placed to subxiphoid position and 2 in the right lateral abdomen to allow for retraction of the gallbladder under direct visualization. Once established, the gallbladder was then retracted laterally towards the right side of the abdomen, and the structures were isolated with a combination of blunt dissection and cautery. Patient was then placed into reverse Trendelenburg with slight rotation to facilitate the dissection. The cystic duct and artery were identified at critical view at the hepatic plate. They were then clipped with 5-mm clips and transected with Endo Anderson. The gallbladder was then elevated from the remaining hepatic bed with Bovie cautery. Once complete, the gallbladder itself was retrieved from the Donato port after re-siting the camera to the subxiphoid position and using an EndoCatch bag, 10 mm. Once the gallbladder was removed, it was passed off the field for final pathologic diagnosis. The pneumoperitoneum was reestablished to inspect the liver bed, which appeared hemostatic. We then proceeded to return the patient to a level position and trocars were removed under direct visualization. The Donato entry port was closed and ablated with 0 Vicryl. The skin was cleaned and Vicryl was used to close the skin. Sterile dressings were placed. The counts were correct postoperatively. MD JENNY Medina/[id number]
[2018-01-25] MEDS ORDERED: HEPARIN NA (PORCINE) 5,000 UNITS/ML 1ML VIAL SQ SCH (22:00)
[2018-01-26] MEDS: SODIUM CHLORIDE 1,000 ML IV SCH (05:11)
[2018-01-26 06:57] LABS: BASO % 0.1 % (0-2.0); LYMPH % 15.3 % (8-40); MCH 32.7 pg (25.7-33.7); MCHC 34.5 g/dl (32.0-36.0); MEAN CELL VOLUME 94.9 fl (80-96); MEAN PLT VOLUME 8.1 fl (7.5-11.1); MONO % 3.6 % (3.8-10.2); PLATELET COUNT 190 K/MM3 (134-434); RBC 3.37 M/mm3 (3.60-5.2); RDW 12.1 % (11.6-15.6); WHITE BLOOD COUNT 5.6 K/mm3 (4.0-10.0)
[2018-01-26 07:25] LABS: ANION GAP 11 (8-16); BLOOD UREA NITROGEN 12 mg/dL (7-18); CHLORIDE 109 mmol/L (98-107); CO2 19 mmol/L (21-32); GLUCOSE,RANDOM 69 mg/dL (74-106); MAGNESIUM 1.8 mg/dL (1.8-2.4); POTASSIUM 4.6 mmol/L (3.5-5.1); SODIUM 139 mmol/L (136-145)
[2018-01-26 07:29] LABS: ALK PHOS 64 U/L (45-117); BILIRUBIN,TOTAL 0.6 mg/dL (0.2-1.0); CREATININE 0.8 mg/dL (0.55-1.02); SGOT/AST 55 U/L (15-37); SGPT/ALT 74 U/L (12-78)
--- NOTE | 2018-01-26 08:40 | PN ---
Physical Exam: SUBJECTIVE: Patient seen and examined at bedside. Eating lunch. Walked hallway this morning. OBJECTIVE: Vital Signs Period Temp Pulse Resp BP Sys/Iqbal Pulse Ox Last 24 Hr 97.5 F-98.6 F 66-110 15-20 95-124/49-68 97-100 GENERAL: The patient is awake, alert, and fully oriented, in no acute distress. LUNGS: Breath sounds equal, clear to auscultation bilaterally, no wheezes, no crackles, no accessory muscle use. HEART: Regular rate and rhythm, S1, S2 ABDOMEN: Soft, diffusely tender, +BS, trochanter sites covered with gauze with mild sanguinous drainage; no surrounding erythema or fluctuance EXTREMITIES: 2+ pulses, warm, well-perfused, no edema, no calf tenderness. NEUROLOGICAL: Cranial nerves II through XII grossly intact. Normal speech. Laboratory Results - last 24 hr 01/25/18 01/25/18 01/25/18 06:05 06:05 13:20 WBC RBC Hgb Hct MCV MCH MCHC RDW Plt Count MPV Absolute Neuts (auto) Neutrophils % Lymphocytes % Monocytes % Eosinophils % Basophils % Nucleated RBC % Sodium Potassium Chloride Carbon Dioxide Anion Gap BUN Creatinine Creat Clearance w eGFR Random Glucose Calcium Magnesium Total Bilirubin AST ALT Alkaline Phosphatase Total Protein Albumin Carcinoembryonic Ag 3.1 CA 19-9 Antigen 37 H Urine Color Straw Urine Appearance Clear Urine pH 5.0 D Ur Specific [place] 1.013 Urine Protein Negative Urine Glucose (UA) Negative Urine Ketones 2+ H Urine Blood 1+ H Urine Nitrite Negative Urine Bilirubin Negative Urine Urobilinogen Negative Ur Leukocyte Esterase Trace Urine WBC (Auto) 8 Urine RBC (Auto) 1 Ur Epithelial Cells Few Urine Mucus Rare 01/26/18 01/26/18 06:05 06:05 WBC 5.6 RBC 3.37 L Hgb 11.0 Hct 32.0 L MCV 94.9 MCH 32.7 MCHC 34.5 RDW 12.1 Plt Count 190 MPV 8.1 Absolute Neuts (auto) 4.5 Neutrophils % 81.0 D Lymphocytes % 15.3 D Monocytes % 3.6 L Eosinophils % 0.0 D Basophils % 0.1 Nucleated RBC % 0 Sodium 139 Potassium 4.6 Chloride 109 H Carbon Dioxide 19 L Anion Gap 11 BUN 12 Creatinine 0.8 Creat Clearance w eGFR > 60 Random Glucose 69 L Calcium 8.0 L Magnesium 1.8 Total Bilirubin 0.6 AST 55 H ALT 74 Alkaline Phosphatase 64 Total Protein 6.0 L Albumin 3.0 L Carcinoembryonic Ag CA 19-9 Antigen Urine Color Urine Appearance Urine pH Ur Specific [place] Urine Protein Urine Glucose (UA) Urine Ketones Urine Blood Urine Nitrite Urine Bilirubin Urine Urobilinogen Ur Leukocyte Esterase Urine WBC (Auto) Urine RBC (Auto) Ur Epithelial Cells Urine Mucus Active Medications Generic Name Dose Route Start Last Admin Trade Name Freq PRN Reason Stop Dose Admin Acetaminophen 650 mg 01/25/18 18:01 Tylenol - PO Q6H PRN PAIN LEVEL 1-5 Heparin Sodium (Porcine) 5,000 unit 01/25/18 22:00 Heparin - SQ TID JAMARI Sodium Chloride 1,000 mls @ 100 mls/hr 01/25/18 18:01 01/26/18 05:11 Normal Saline - IV 100 mls/hr ASDIR JAMARI Administration Ibuprofen 600 mg 01/25/18 18:01 Motrin - PO Q6H PRN PAIN LEVEL 1-5 Morphine Sulfate 4 mg 01/25/18 18:01 Morphine Sulfate IVPUSH Q6H PRN PAIN LEVEL 6 - 10 Ondansetron HCl 4 mg 01/25/18 18:01 Zofran Injection IVPUSH Q6H PRN NAUSEA Pantoprazole Sodium 40 mg 01/26/18 10:00 Protonix Iv IVPUSH DAILY [facility] ASSESSMENT/PLAN: 52 year-old female with no significant PMH admitted for abdominal pain. Lap leslie POD #1. Acute Cholecystitis --01/23 MRCP: distended gallbladder with wall thickening and edema; sludge- filled; CBD normal, no intrahepatic duct dilitation --01/24: lap leslie with Dr. Bass --Zofran, Tylenol, Motrin, morphine PRN; Protonix IVP daily --no antibiotics FEN Fluids: PO intake adequate Electrolytes: replete as indicated Nutrition: regular diet DVT prophylaxis: subq heparin, oob, ambulation Physical therapy Dispo: continues to require inpatient care. Full code. Visit type - Emergency Visit Emergency Visit: Yes ED Registration Date: 01/23/18 Care time: The patient presented to the Emergency Department on the above date and was hospitalized for further evaluation of their emergent condition. - New Patient This patient is new to me today: No - Critical Care Critical Care patient: No
--- NOTE | 2018-01-26 09:04 | PN ---
Progress Note (short form) - Note Progress Note: Anesthesia post op/Pain Pt seen and examined S:Alert and awake comfortable O: Vital Signs Temperature 98.4 F 01/26/18 05:00 Pulse Rate 90 01/26/18 05:00 Respiratory Rate 18 01/26/18 05:00 Blood Pressure 95/49 01/26/18 05:00 O2 Sat by Pulse Oximetry (%) 98 01/25/18 23:00 CBC, BMP 01/26/18 06:05 01/26/18 06:05 A/P Current Active Problems Abdominal pain (Acute) Dilated cbd, acquired (Acute) Dyskinesia of gallbladder (Acute) Gallbladder polyp (Acute) Nausea and vomiting (Acute) RUQ abdominal pain (Acute) RUQ abdominal tenderness (Acute) s/p lap leslie Doing well post op Continue current care Kai Tellze MD
[2018-01-26] MEDS ORDERED: PANTOPRAZOLE SODIUM 40 MG VIAL IVPUSH SCH (10:00)
[2018-01-26 10:39] VITALS: BP 116/62
[2018-01-26] MEDS ORDERED: ONDANSETRON *ODT* 4 MG TABLET SL PRN (13:23)
--- NOTE | 2018-01-26 13:33 | PN ---
Progress Note, Physician Chief Complaint: abdominal pain History of Present Illness: 52 yo female with no significnat PMH who presented to the ED after RUQ pain since Monday. On Monday, pt had nausea and vomiting. Since then pain has worsened and nausea continued. MRI was negative for choledocholithasis, stable overnight post operatively. tolerating diet, voiding, passing flatus, no pain, ambulating, would like to go home. - Current Medication List Current Medications: Active Medications Acetaminophen (Tylenol -) 650 mg PO Q6H PRN PRN Reason: PAIN LEVEL 1-5 Heparin Sodium (Porcine) (Heparin -) 5,000 unit SQ TID JAMARI Ibuprofen (Motrin -) 600 mg PO Q6H PRN PRN Reason: PAIN LEVEL 1-5 Ondansetron HCl (Zofran Odt -) 4 mg SL Q6H PRN PRN Reason: NAUSEA AND/OR VOMITING Pantoprazole Sodium (Protonix -) 40 mg PO DAILY JAMARI - Objective Vital Signs: Vital Signs Temperature 98.4 F 01/26/18 09:00 Pulse Rate 89 01/26/18 09:00 Respiratory Rate 01/26/18 09:00 Blood Pressure 116/62 01/26/18 09:00 O2 Sat by Pulse Oximetry (%) 98 01/25/18 23:00 Constitutional: Yes: Well Nourished, No Distress, Calm Eyes: Yes: Conjunctiva Clear, EOM Intact HENT: Yes: Atraumatic, Normocephalic Neck: Yes: Supple, Trachea Midline Cardiovascular: Yes: Regular Rate and Rhythm, S1, S2 Respiratory: Yes: Regular, CTA Bilaterally Gastrointestinal: Yes: Normal Bowel Sounds, Soft ...Rectal Exam: Yes: Deferred Genitourinary: No: CVA Tenderness - Left, CVA Tenderness - Right Extremities: No: Cool, Cyanosis Edema: No Peripheral Pulses WNL: Yes Peripheral Pulses: Left Radial: 2+, Right Radial: 2+, Left Doralis Pedis: 2+, Right Dorsalis Pedis: 2+ Integumentary: No: Jaundice, Rash Wound/Incision: Yes: Clean/Dry, Well Approximated. No: Draining, Reddened Neurological: Yes: Alert, Oriented Psychiatric: Yes: Alert, Oriented Labs: CBC, BMP 01/26/18 06:05 01/26/18 06:05 INR, PTT INR 1.15 (0.83-1.09) 01/23/18 15:35 Problem List - Problems (1) Dyskinesia of gallbladder Assessment/Plan: 52yo female with Billiary dyskinesia and RUQ pain that is intractable for 5 years, CBD 0.7 no clear choledocholithiasis, POD#1 s/p Lap Cholecystectomy Diet as tolerated encourage IS OOB Discharge planning f/u in 2 weeks Discussed with patient risks, benefits and alternatives of laparoscopic possible open ectomy, including but not limited to bleeding, infection, injury to adjacent structures, leak or injury, intraabdominal abscess, need for further procedures, ; alternatives include antibiotics, delayed or no surgery - risks of this include failure of nonoperative therapy, perforation, sepsis, recurrence, . Patient desires to proceed with operation - will take to OR for above. Informed consent signed for same. Code(s): K82.8 - OTHER SPECIFIED DISEASES OF GALLBLADDER (2) Dilated cbd, acquired Code(s): K83.8 - OTHER SPECIFIED DISEASES OF BILIARY TRACT (3) Nausea and vomiting Code(s): R11.2 - NAUSEA WITH VOMITING, UNSPECIFIED Qualifiers: Vomiting type: unspecified Vomiting Intractability: non-intractable Qualified Code(s): R11.2 - Nausea with vomiting, unspecified (4) RUQ abdominal tenderness Code(s): R10.811 - RIGHT UPPER QUADRANT ABDOMINAL TENDERNESS Qualifiers: Presence of rebound: present Qualified Code(s): R10.821 - Right upper quadrant rebound abdominal tenderness
--- NOTE | 2018-01-26 13:39 | DS ---
Physical Exam: SUBJECTIVE: Patient seen and examined at bedside. Eating lunch. Walked hallway this morning. OBJECTIVE: Vital Signs Period Temp Pulse Resp BP Sys/Iqbal Pulse Ox Last 24 Hr 98.3 F-98.6 F 81-105 15-19 95-122/49-68 97-98 PHYSICAL EXAM GENERAL: The patient is awake, alert, and fully oriented, in no acute distress. LUNGS: Breath sounds equal, clear to auscultation bilaterally, no wheezes, no crackles, no accessory muscle use. HEART: Regular rate and rhythm, S1, S2 ABDOMEN: Soft, diffusely tender, +BS, trochanter sites covered with gauze with mild sanguinous drainage; no surrounding erythema or fluctuance EXTREMITIES: 2+ pulses, warm, well-perfused, no edema, no calf tenderness. NEUROLOGICAL: Cranial nerves II through XII grossly intact. Normal speech. LABS Laboratory Results - last 24 hr 01/25/18 01/25/18 01/25/18 06:05 06:05 13:20 WBC RBC Hgb Hct MCV MCH MCHC RDW Plt Count MPV Absolute Neuts (auto) Neutrophils % Lymphocytes % Monocytes % Eosinophils % Basophils % Nucleated RBC % Sodium Potassium Chloride Carbon Dioxide Anion Gap BUN Creatinine Creat Clearance w eGFR Random Glucose Calcium Magnesium Total Bilirubin AST ALT Alkaline Phosphatase Total Protein Albumin Carcinoembryonic Ag 3.1 CA 19-9 Antigen 37 H Urine Color Straw Urine Appearance Clear Urine pH 5.0 D Ur Specific [place] 1.013 Urine Protein Negative Urine Glucose (UA) Negative Urine Ketones 2+ H Urine Blood 1+ H Urine Nitrite Negative Urine Bilirubin Negative Urine Urobilinogen Negative Ur Leukocyte Esterase Trace Urine WBC (Auto) 8 Urine RBC (Auto) 1 Ur Epithelial Cells Few Urine Mucus Rare 01/26/18 01/26/18 06:05 06:05 WBC 5.6 RBC 3.37 L Hgb 11.0 Hct 32.0 L MCV 94.9 MCH 32.7 MCHC 34.5 RDW 12.1 Plt Count 190 MPV 8.1 Absolute Neuts (auto) 4.5 Neutrophils % 81.0 D Lymphocytes % 15.3 D Monocytes % 3.6 L Eosinophils % 0.0 D Basophils % 0.1 Nucleated RBC % 0 Sodium 139 Potassium 4.6 Chloride 109 H Carbon Dioxide 19 L Anion Gap 11 BUN 12 Creatinine 0.8 Creat Clearance w eGFR > 60 Random Glucose 69 L Calcium 8.0 L Magnesium 1.8 Total Bilirubin 0.6 AST 55 H ALT 74 Alkaline Phosphatase 64 Total Protein 6.0 L Albumin 3.0 L Carcinoembryonic Ag CA 19-9 Antigen Urine Color Urine Appearance Urine pH Ur Specific [place] Urine Protein Urine Glucose (UA) Urine Ketones Urine Blood Urine Nitrite Urine Bilirubin Urine Urobilinogen Ur Leukocyte Esterase Urine WBC (Auto) Urine RBC (Auto) Ur Epithelial Cells Urine Mucus HOSPITAL COURSE: Date of Admission:01/23/18 Date of Discharge: 01/26/18 52 year-old female with no significant PMH admitted for abdominal pain. Lap leslie POD #1. Acute Cholecystitis --01/23 MRCP: distended gallbladder with wall thickening and edema; sludge- filled; CBD normal, no intrahepatic duct dilitation --01/24: lap leslie with Dr. Bass --ambulating, passed flatus, tolerating regular diet --no fever, no leukocytosis, no antibiotics --cleared by surgery for discharge Minutes to complete discharge: 35 Discharge Summary Reason For Visit: ABDOMINAL PAIN; NAUSEA; VOMITING Current Active Problems Abdominal pain (Acute) Dilated cbd, acquired (Acute) Dyskinesia of gallbladder (Acute) Gallbladder polyp (Acute) Nausea and vomiting (Acute) RUQ abdominal pain (Acute) RUQ abdominal tenderness (Acute) Condition: Improved - Instructions Diet, Activity, Other Instructions: Postoperative instructions: You had a laparoscopic Cholecystectomy on 01/25/[address] Christopher Bass of [facility]. Activity: Resume your usual activities gradually, but no heavy exertion or lifting more than 10-15 pounds for 1 month. Remove dressings 48 hours after surgery; sticky tapes underneath will fall off by themselves. You may shower daily starting then, just pat the incision areas dry. Eat lightly at first, but advance to your usual diet as tolerated. Pain: For pain, you may use and alternate Tylenol (acetaminophen) and/or ibuprofen every 6 hours each as needed; this means that you can take one OR the other at 3-hour intervals. If you are prescribed a Tylenol/narcotic combination for severe pain, use it instead of plain Tylenol as needed and switch back when your pain starts decreasing. Do not take more than 4000mg of acetaminophen in a day. Take medications as prescribed or indicated on the labeling. Follow-up: Call Dr. Bass' office at [phone] to make your postop appointment (Monday ~2 weeks after surgery). Clinic is held in the Diagnostic Center on the first floor of [facility]. Call the office if you have: * increasing pain not responsive to pain medication * fever of 101F or higher * vomiting * unusual or increasing bleeding or drainage from wounds * increasing redness or swelling at wound sites * inability to urinate Also, see your primary medical doctor within 1-2 weeks. Referrals: Christopher Bass MD [Staff Physician] - Disposition: HOME - Home Medications Comprehensive Discharge Medication List: Ambulatory Orders NK [No Known Home Medication] 01/23/18 This patient is new to me today: No Emergency Visit: Yes ED Registration Date: 01/23/18 Care time: The patient presented to the Emergency Department on the above date and was hospitalized for further evaluation of their emergent condition. Critical Care patient: No - Discharge Referral Referred to [facility] No
[2018-01-26 15:55] VITALS: PULSE 88; TEMP 98
[2018-01-27] MEDS ORDERED: PANTOPRAZOLE 40 MG TABLET (FP) PO SCH (10:00)
--- NOTE | 2018-01-29 16:22 | PATH ---
Surgical Pathology Report Patient Name: MARTY ACUÑA [facility]. Rec. #: [id number] /Age/Gender: 1965 (Age: 52) / F Account: [id number] Location: [address] [place] [address]/[facility] Taken: 01/25/2018 Received: 01/26/2018 Reported: 01/29/2018 Physicians: Christopher Bass M.D. Specimen(s) Received GALLBLADDER Clinical History Acute cholecystitis Final Diagnosis GALLBLADDER, LAPAROSCOPIC CHOLECYSTECTOMY: CHRONIC CHOLECYSTITIS AND ADENOMYOMATOUS HYPERPLASIA. ONE BENIGN PERIDUCTAL LYMPH NODE (0/1). Electronically Signed Rosio Lobo M.D. Gross Description Received in formalin, labeled "gallbladder," is a 9.0 x 3.0 x 3.0 cm. gallbladder with a 0.2 cm. in length portion of cystic duct attached. There is a 0.6 cm greatest dimension periductal lymph node present. The outer surface is arrington-green and varies from smooth to shaggy. The lumen contains green, tenacious bile. There are no choleliths present. The mucosa is dark green and velvety. The gallbladder fundus displays a firm area with submucosal cystic spaces. The wall of the gallbladder measures 0.1 cm. in thickness. Manager Technical Sales sections are submitted in 2 cassettes as follows: 1-cystic duct margin, lymph node and sales representative adding machines gallbladder; 2-fundus. 01/26/2018 [facility]01/26/2018
== END 2018-01-26 14:38 | disposition home or self-care (01) | DRG 419 ==
LOC: JER 14:25 → JERBED 17:58 → J5S 18:55
PROVIDERS: ADMIT Hospitalist; ATTEND Nurse Practitioner Acute Care
PROC: 0FT44ZZ Resection of Gallbladder, Percutaneous Endoscopic Approach (ICD-10-PCS; principal; 2018-01-25 15:30)
DX: K81.0 Acute cholecystitis (principal)
CPT/HCPCS: 36415; 71046-TC-FY; 74181-TC; 76705-TC; 80053; 81003; 81015; 82378; 82550; 83690; 83735; 84100; 84484; 85025; 85610; 86301; 87086; 88304-TC; 93005; 93010; 94010; 94760; 97116-GP; 97161-GP; 99282-25; J7030

== ENCOUNTER 2018-05-15 06:16 | Day surgery (SDC) | payer OTHER ==
[2018-05-14 12:54] VITALS: BMI 22.1
[2018-05-15] MEDS ORDERED: COCAINE HCL 4% TOPICAL SOLUTION 4 ML BOTTLE TP ONE ×2 (07:28→08:42)
[2018-05-15] MEDS ORDERED: LIDOCAINE 1%/EPI 1:100000 (20 ML MULTI DOSE VIAL) ONE (07:31)
[2018-05-15] MEDS ORDERED: ACETAMINOPHEN INJECTION 100 ML IVPB ONE (07:33)
[2018-05-15] MEDS ORDERED: MIDAZOLAM HCL 2 MG/2 ML SINGLE DOSE VIAL ONE (07:35)
[2018-05-15] MEDS ORDERED: DESFLURANE GAS 240 ML BOTTLE IH ONE (07:58)
[2018-05-15] MEDS ORDERED: BACITRACIN 15 GM TUBE TOPICAL OINTMENT ONE (07:58)
--- NOTE | 2018-05-15 07:59 | HP ---
Admitting History and Physical - Primary Care Physician PCP: Cecilio Erwin - Admission Chief Complaint: Nasal drip, cough, sinusitis History of Present Illness: Pt with nasal polyps, sinusitis, chronic cough. She has not responded to abx, steroids, sprays. She had pulm consult that showed no significant pulmonary problems and agreed that sinusitis was exacerbating cough. History Source: Patient, Medical Record Limitations to Obtaining History: No Limitations - Past Medical History ...LMP Comment: 2013 lmp - Smoking History Smoking history: Never smoked Have you smoked in the past 12 months: No Aproximately how many cigarettes per day: 0 - Alcohol/Substance Use Hx Alcohol Use: No History of Substance Use: reports: None - Social History ADL: Independent Home Medications - Allergies Allergies/Adverse Reactions: Allergies Allergy/AdvReac Type Severity Reaction Status Date / Time codeine AdvReac Vomiting Verified 05/15/18 06:51 - Home Medications Home Medications: Ambulatory Orders NK [No Known Home Medication] 05/14/18 Physical Examination Vital Signs: Vital Signs Temperature 98.0 F 05/15/18 06:50 Pulse Rate 98 H 05/15/18 06:50 Respiratory Rate 20 05/15/18 06:50 Blood Pressure 117/73 05/15/18 06:50 O2 Sat by Pulse Oximetry (%) 98 05/15/18 06:44 Constitutional: Yes: Well Nourished, No Distress, Calm Eyes: Yes: WNL, Conjunctiva Clear HENT: Yes: Atraumatic, Other (deviated septum, enlarged turbinates) Neck: Yes: WNL, Supple Cardiovascular: Yes: WNL Respiratory: Yes: WNL Problem List - Problems (1) Sinusitis Assessment/Plan: For sinus surgery today Code(s): J32.9 - CHRONIC SINUSITIS, UNSPECIFIED Qualifiers: Sinusitis location: pansinusitis Chronicity: chronic Qualified Code(s): J32.4 - Chronic pansinusitis
[2018-05-15] MEDS ORDERED: ROCURONIUM BROMIDE 50 MG/5 ML VIAL ONE (08:11)
[2018-05-15] MEDS ORDERED: DEXAMETHASONE SOD PHOSPHATE 4 MG/1 ML VIAL ONE (08:11)
[2018-05-15] MEDS ORDERED: SUCCINYLCHOLINE CHLORIDE 200 MG/10 ML VIAL ONE (08:11)
[2018-05-15] MEDS ORDERED: ceFAZolin SODIUM 1 GM VIAL ONE (08:12)
[2018-05-15] MEDS ORDERED: NEOSTIGMINE METHYLSULFATE 0.5 MG/ML - 10 ML MDV ONE (08:34)
[2018-05-15] MEDS ORDERED: GLYCOPYRROLATE 0.2 MG/1 ML VIAL ONE (08:34)
[2018-05-15] MEDS ORDERED: LIDOCAINE 1%/EPI 1:100000 (20 ML MULTI DOSE VIAL) IJ ONE (08:41)
[2018-05-15] MEDS ORDERED: TRIAMCINOLONE ACET 40MG/1ML VIAL ONE (09:03)
[2018-05-15] MEDS ORDERED: ONDANSETRON 4 MG/2 ML VIAL IVPUSH PRN (09:29)
[2018-05-15] MEDS ORDERED: oxyCODONE HCL 5 MG TABLET PO PRN (09:29)
[2018-05-15] MEDS ORDERED: PROMETHAZINE HCL 25 MG/1 ML VIAL IVPUSH PRN (09:29)
[2018-05-15] MEDS ORDERED: LACTATED RINGERS SOLUTION 1,000 ML IV SCH (09:30)
[2018-05-15] MEDS ORDERED: ONDANSETRON 4 MG/2 ML VIAL ONE (10:07)
--- NOTE | 2018-05-15 11:01 | OP ---
DATE OF OPERATION: 05/15/2018 PREOPERATIVE DIAGNOSES: Chronic sinusitis, nasal polyps, deviated septum, turbinate hypertrophy. POSTOPERATIVE DIAGNOSES: Chronic sinusitis, nasal polyps, deviated septum, turbinate hypertrophy. PROCEDURES: Bilateral endoscopic anterior ethmoidectomy, bilateral maxillary antrostomy with tissue removal, bilateral turbinate outfracture, and stereotactic navigation of the sinuses. SURGEON: Michael Siu MD ANESTHESIA: General. ANESTHESIOLOGIST: Raoul Nguyen MD INDICATION FOR PROCEDURE: This a patient with nasal polyp and chronic sinusitis refractory to steroid, antibiotics, steroid sprays, decongestant sprays, who is undergoing allergy treatment but has chronic coughing, nasal congestion, postnasal drip. The risks and benefits of the procedure were discussed with patient in the office and also in the hospital. Risks and benefits include breathing better, less postnasal drip, decreased sinusitis, removal of the polyp. We discussed future problems. She understands that the polyps will come back more likely if she does not do preventative treatment including allergy treatment and steroid sprays and nasal irrigation. Other possible complications include infection, bleeding, brain complication, eye complications, medication complication, and she accepts this, and all questions were answered. DESCRIPTION OF PROCEDURE: Patient was brought into the operating room and placed under general anesthesia. Her nose was decongested with 4% cocaine on pledgets and injected with 1% lidocaine with 1:100,000 epinephrine into the inferior turbinates, lateral nasal wall, polyps, middle turbinate roof. A Keyade navigation tracker was placed on her forehead and navigation was calibrated. She was then prepped and draped, and her nose was examined. She had a spur to the left side that did not obstruct approach to the middle meatus. She had polyps emanating from the ethmoid middle meatus area and also medial to the middle turbinate on the left side. She had polyps emanating from the middle meatus on the right side. She had polypoid changes to both middle turbinates. Surgery was performed first on the left side by medializing the middle turbinate. The ethmoid was exenterated using the microdebrider and removed polyps to the ground lamella and parallel to the ostia of the maxillary sinus. Polyp medial to the middle turbinate was removed using an upbiting forceps and sent to Pathology separately. The polypoid in the middle turbinate was taken down with the microdebrider. The ostia of the maxillary sinus was opened and widened using the Keyadetronic guided balloon with 3 separate insufflations. After identifying the ostia, there was some polypoid tissue emanating from in and around the ostia, and the ostium was entered with the microdebrider, and somewhat appeared to be polypoid tissue was removed from the medial wall of the maxillary sinus. The maxillary sinus was irrigated with saline and suctioned, and cottonoid was placed into the ethmoid cavity. On the right side, the polyps were not as large, but there was significant polyposis. The ethmoidectomy was carried back to the ground lamella and laterally to the level of the ostia of the maxillary sinus. The polypoid middle turbinate was reduced with a microdebrider. The ostia of the maxillary sinus was identified and widened using the maxillary balloon. Also on this side, there was some polypoid tissue coming from in and around that ostia, and the microdebrider was placed through the ostia, and some thickened tissue was removed in the maxillary sinus and then the sinus was irrigated with the curved suction. The cottonoid was then replaced into the ethmoid cavity, and then the inferior turbinates were outfractured with the long nasal speculum first on the left then on the right side. The nose was then irrigated, and then Nasopore packing was placed into both ethmoid cavities, and 0.5 mL of Kenalog 40 was injected into the Nasopore on both sides. Each Nasopore was also lubricated with bacitracin ointment. The patient was extubated in the operating room and brought to the recovery room in stable condition. Frances [id number]
[2018-05-15 12:59] VITALS: BP 114/62; PULSE 64; TEMP 97.3
--- NOTE | 2018-05-16 18:31 | PATH ---
Surgical Pathology Report Patient Name: MARTY ACUÑA [facility]. Rec. #: [id number] /Age/Gender: 1965 (Age: 52) / F Account: [id number] Location: [facility] Taken: 05/15/2018 Received: 05/15/2018 Reported: 05/16/2018 Physicians: Michael Siu M.D. Specimen(s) Received A: LEFT NASAL POLYP B: NASAL SINUS CONTENT Clinical History Deviated nasal septum Final Diagnosis A. LEFT NASAL POLYP, EXCISION: NASAL INFLAMMATORY POLYP. B. NASAL SINUS CONTENTS, EXCISION: CHRONIC SINUSITIS. Electronically Signed Zo Mitchell M.D. Gross Description A. Received in formalin labeled "left nasal polyp," is a 1.9 x 0.6 x 0.2 cm arrington, polypoid portion of soft tissue. The specimen is submitted in toto in one cassette. B. Received in formalin labeled "nasal sinus contents," is a 3.2 x 2.7 x 0.3 cm aggregate of arrington-pink soft tissue fragments. The formalin is filtered and the specimen is entirely submitted in 2 cassettes. DL/05/15/2018 saudi/05/15/2018
== END 2018-05-15 12:45 | disposition home or self-care (01) ==
LOC: JASU-SURG 06:16
PROVIDERS: ATTEND Otolaryngology
PROC: 09BV8ZZ Excision of Left Ethmoid Sinus, Via Natural or Artificial Opening Endoscopic (ICD-10-PCS; 2018-05-15)
PROC: 09BU8ZZ Excision of Right Ethmoid Sinus, Via Natural or Artificial Opening Endoscopic (ICD-10-PCS; 2018-05-15)
PROC: 8E09XBZ Computer Assisted Procedure of Head and Neck Region (ICD-10-PCS; 2018-05-15)
PROC: 8E09XBZ Computer Assisted Procedure of Head and Neck Region (ICD-10-PCS; principal; 2018-05-15 08:00)
DX: J32.9 Chronic sinusitis, unspecified (principal); J33.9 Nasal polyp, unspecified; J34.2 Deviated nasal septum; J34.3 Hypertrophy of nasal turbinates
CPT/HCPCS: 84703; 88304-TC; 88305-TC; 94760; J0131